=== PATIENT | male | born 1935 | race Caucasian/White ===

== ENCOUNTER 2024-08-12 14:00 | Outpatient (RCR) | payer MEDICARE, BC, SELFPAY ==
--- NOTE | 2024-05-18 16:35 | PTOPEVAL1 ---
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 Doesn't play golf anymore because is afraid is going to be dizzy and fall. States has had vertigo previously but referring provider tested this and states this doesn't seem like it is that. Has been dealing wiht this about 2 years. was here for vertigo 10 years ago. states has the worst issue with looking up, and bending over. turning in a point hope ira dizziness. Reports also has hip problems. Reported Pain Level Pain Score 0: Self Report Assessment PT Clinical Summary Pt presents with complaints of dizziness for the past two years or so. States prior episode of vertigo approx ten years ago that he addressed with PT. Pt demo's decreased ankle stability and balance with eyes open and small base of support that changes drastically with eyes closed testing. Pt demo's negative vertebral artery testing hans but demo's right upward torsional nystagmus for a short immediate burst with left roll during vertebral artery testing. Formal testing beyond this demo's no nystagmus or symptom provocation. 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 Pt will benefit from physical therapy to continue assessing BPPV signs and symptoms treating as appropriate, balance deficits, and improve overall functional mobility and quality of life. 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 The patient will be advanced safely and appropriately in order for the patient to progress towards his/her prior level of function. Additional exercises will be introduced and as well as a comprehensive home exercise program upon discharge, if needed, ?to ensure carryover of functional gains achieved in the clinic. This treatment plan has been reviewed and agreement upon by the patient.
--- NOTE | 2024-05-18 16:36 | OPREHPOC ---
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
--- NOTE | 2024-07-27 16:38 | PTOPPROG ---
Assessment and note entered by Radha Miranda, PT Evaluation Information Assessment Status Progress ICD-10 Condition Codes (PT) Abnormalities of gait and mobility R26.9,Weakness R53.1 Onset 2 years Subjective Information Dizziness is better, confidence in walking is improved I think but doesn't feel like has a lot of confidence. States with bending over and standing back up or with looking up will feel lack of balance not vertigo. Once in a while the left side of his low back will still bother. Feels 30% improved overall. 100% better would involve being able to walk better. Is going to be joining the gym in August Assessment PT Clinical Summary Pt has attended therapy consistently for dizziness and balance deficits. His dizziness has resolved 100% however he reports continued difficulty with looking up and bending over. After discussion this appears to be strength and center of gravity related versus BPPV pathology. He demonstrates significant postural weakness in the gluteal musculature which is likely playing a large part in his balance deficits. He also continues to show significant differences in his balance between eyes open and closed activities suggestive of vestibular deficits that are not related to otolith positioning. Pt will benefit from continued therapy to continue improving these deficits and improve his functional safety and independence. Plan of Care Interventions Check Out for Orthotic/Prosthetic,Gait Training, Manual Therapy,Neuro Re-education,Patient/ Caregiver Education,Therapeutic Activities, Therapeutic Exercise,Self-Care/Home Management, Other Other Interventions Bracing PT Services Indicated Yes Treatment Frequency and 1-2x weekly x 10 visits Duration These treatments will address the objective and functional deficits as defined above. The patient will be advanced safely and appropriately in order for the patient to progress towards his/her prior level of function. Additional exercises will be introduced and as well as a comprehensive home exercise program upon discharge, if needed, ?to ensure carryover of functional gains achieved in the clinic. This treatment plan has been reviewed and agreement upon by the patient.
--- NOTE | 2024-08-17 14:48 | PCPTNOTE ---
This treatment is being continued on visit number [id number]. Please see documentation on both accounts to view progress. Completed interventions, outcomes, and problems have been marked as Inactive to facilitate the copying of the Care plan routine for recurring accounts.
== END 2024-08-15 23:59 | disposition home or self-care (01) ==
LOC: ANHHIPT 14:00
PROVIDERS: PCP Family Medicine
DX: R26.89 Other abnormalities of gait and mobility (principal)
CPT/HCPCS: 97110; 97112; 97116; 97162

== ENCOUNTER 2024-09-20 12:30 | Outpatient (RCR) | payer MEDICARE, BC, SELFPAY ==
--- NOTE | 2024-08-17 14:47 | PCPTNOTE ---
The treatment documented on this account is a continuation of the treatment documented on visit number [id number]. Please see documentation on both accounts to view progress. The Plan of Care has been transitioned and updated within the new V#. I have addressed and agree with the discipline specific Problems, Interventions, and Goals for the current certification period. Completed interventions, outcomes, and problems have been marked as Inactive to facilitate the copying of the Care plan routine for recurring accounts.
--- NOTE | 2024-08-19 16:03 | PCPTNOTE ---
Patient called & cancelled scheduled appointment this date due to weather conditions
--- NOTE | 2024-09-20 14:38 | PTOPDC ---
Assessment and note entered by Radha Miranda, PT Evaluation Information Assessment Status Discharge ICD-10 Condition Codes (PT) Abnormalities of gait and mobility R26.9,Weakness R53.1 Onset 2 years Subjective Information Feels 60% improved overall. Reports dizziness continues to be gone Reports feels is more muscular in the buttocks States low back is doing well, that if he feels strained he knows he is doing it wrong Reported Pain Level Pain Score 0: Self Report Assessment PT Clinical Summary Pt has attended therapy consistently for dizziness and balance deficits. His dizziness has resolved 100%, and feels 60% improved in his balance related to his hip weakness. He demonstrates improvement in static posture and glute medius activation, demonstrates improved balance with eyes closed on firm and unstable surfaces indicative of improved vestibular system. Demonstrates golf swing in the clinic and ability to easily correct hip drop in static single leg stance activity. Continues to demonstrate Trendelenburg gait, has been educated on exercises to focus on gluteus medius, and when to return to therapy in the future if necessary. Thus patient is being discharged for reaching maximal benefit at this time in order to continue to pursue progression independently. Plan of Care PT Services Indicated No
== END 2024-09-22 10:54 | disposition home or self-care (01) ==
LOC: ANHHIPT 12:30
PROVIDERS: PCP Physician Assistant Medical
DX: R26.89 Other abnormalities of gait and mobility (principal)
CPT/HCPCS: 97110; 97112; 97530; 97750